=== PATIENT | male | born 1975 | race Caucasian/White ===

== ENCOUNTER 2017-12-28 13:43 | Emergency (ER) | payer OTHER, BC ==
[2017-12-28 14:26] LABS: BASO # 0.1 10^3/uL (0.0-0.2); BASO % 0.6 % (0.0-1.0); EOS # 0.1 10^3/uL (0.0-0.50); EOS % 0.7 % (0.0-3.0); HEMATOCRIT 45.6 % (42.0-52.0); HEMOGLOBIN 15.5 g/dl (13.5-17.5); IMMATURE GRANULOCYTE % 0.4 % (0-3.0); LYMPH # 1.8 10^3/uL (1.5-4.5); LYMPH % 18.6 % (24.0-44.0); MEAN CORPUSCULAR HEMOGLOBIN 30.6 pg (27.0-33.0); MEAN CORPUSCULAR VOLUME 89.9 fl (80.0-96.0); MONO # 0.7 10^3/uL (0.0-0.8); MONO % 6.7 % (0.0-5.0); NEUTROPHILS # 7.1 10^3/uL (1.8-7.7); PLATELET COUNT, AUTOMATED 234 10^3/uL (150-450); RED BLOOD COUNT 5.07 10^6/uL (4.30-6.10); RED CELL DISTRIBUTION WIDTH 12.3 % (11.5-14.5); WHITE BLOOD COUNT 9.7 10^3/uL (4.0-10.0)
[2017-12-28 14:36] LABS: PROTHROMBIN TIME 12.2 SECONDS (12.1-14.4)
[2017-12-28 14:50] LABS: ALBUMIN 3.5 GM/DL (3.2-5.2); ALBUMIN/GLOBULIN RATIO 0.97 (1.00-1.93); ALKALINE PHOSPHATASE 84 U/L (45-117); ALT/SGPT 18 U/L (12-78); AMYLASE 45 U/L (25-115); AST/SGOT 19 U/L (7-37); BILIRUBIN,DIRECT 0.2 MG/DL (0.0-0.2); BILIRUBIN,TOTAL 0.4 MG/DL (0.2-1.0); LIPASE 87 U/L (73-393); TOTAL PROTEIN 7.1 GM/DL (6.4-8.2)
[2017-12-28 14:51] LABS: ANION GAP 10 MEQ/L (8-16); BLOOD UREA NITROGEN 18 MG/DL (7-18); CARBON DIOXIDE LEVEL 25 MEQ/L (21-32); CHLORIDE LEVEL 107 MEQ/L (98-107); CPK CREATINE PHOSPHOKINASE 129 U/L (39-308); GLOMERULAR FILTRATION RATE > 60.0 (>60); GLUCOSE, FASTING 100 MG/DL (70-100); MB/CK RELATIVE INDEX 1.01 (< OR =4); POTASSIUM SERUM 3.9 MEQ/L (3.5-5.1); SODIUM LEVEL 142 MEQ/L (136-145); TROPONIN I < 0.02 NG/ML (< 0.10)
== END 2017-12-28 15:52 | disposition home or self-care (01) ==
LOC: M ED 13:43
DX: R07.89 Other chest pain (principal)
CPT/HCPCS: 71045

== ENCOUNTER → 2020-01-26 | Outpatient (CLI) | payer SELFPAY ==
[~2020-01-26] MED LIST: CELE40TA PO; TRAZ-252 PO; ZYLO300T6 PO
== END ==
LOC: M LABSMTC 14:38
PROVIDERS: ATTEND Pediatrics
DX: Z11.59 Encounter for screening for other viral diseases (principal)

== ENCOUNTER → 2020-12-28 | Outpatient (CLI) | payer OTHER ==
--- NOTE | 2020-12-28 08:36 | REP ---
INDICATION: AAA SCREENING. COMPARISON: 12/28/2017 TECHNIQUE: An AP view of the chest was obtained. FINDINGS: Both lungs are fully expanded with no acute pleural or parenchymal changes identified. The heart is normal in size and no abnormality of the great vessels is identified. The visualized bony thorax appears normal. IMPRESSION: Unremarkable portable chest film. <Electronically signed by Wood Bauman > 12/28/20 0817
--- NOTE | 2020-12-28 08:57 | REP ---
INDICATION: AAA SCREENING. COMPARISON: None. TECHNIQUE: Real time imaging utilizing the external transducer. FINDINGS: The aorta appears normal with the proximal aorta at the level of the diaphragm measuring 2.3 mm in AP diameter and 3.3 mm in transverse diameter. The mid infrarenal aorta measures 1.7 mm in AP diameter and 2.2 in transverse diameter. The distal aorta measures 1.6 mm in AP diameter and 2.4 mm in transverse diameter. Both iliac arteries appear normal. IMPRESSION: Unremarkable examination with no evidence abdominal aortic aneurysm. <Electronically signed by Wood Bauman > 12/28/20 0873
== END ==
LOC: M RAD 08:12
DX: Z13.6 Encounter for screening for cardiovascular disorders (principal); Z82.49 Family history of ischemic heart disease and other diseases of the circulatory system